=== PATIENT | female | born 1975 | race Caucasian/White ===

== ENCOUNTER 2016-04-05 15:55 | Emergency (ER) | payer MEDICAID ==
[~2016-04-05] VITALS: Ht 165.1 cm; Wt 70.3 kg
--- NOTE | 2016-04-05 15:55 | NUR ---
BROUGHT BACK TO BED #7 AND TRIAGED. REPORT GIVEN TO EVAN
[2016-04-05 15:58] VITALS: BP 145/94; PULSE 91; RESP 18; TEMP 99; O2SAT 98
--- NOTE | 2016-04-05 16:10 | NUR ---
Pt brought in by mother in stable condition. Pt c/o left arm numbness x3 months. Pt stated that she has been seeing her PMD and was rx Gabapentin. Pt stated that Gabapentin is ineffective. Pt c/o left shoulder tension and thinks it might be pinching a nerve. -sob -chest pain. No acute distress noted at this time, will continue to monitor
--- NOTE | 2016-04-05 16:15 | NUR ---
MARK Potts at bedside evaluating patient
[2016-04-05] MEDS ORDERED: KETOROLAC TROMETHAMINE 60 MG/2 ML VIAL IM ONE (16:30)
[2016-04-05 16:53] VITALS: BP 145/94; PULSE 91; RESP 18; TEMP 99; O2SAT 98
--- NOTE | 2016-04-05 16:53 | NUR ---
Patient given written and verbal discharge instructions and verbalizes understanding. ER [employer] DONA discussed with patient the results and treatment provided. Patient in stable condition. ID arm band removed. Rx of MOTRIN 600, FLEXERIL given. Patient educated on pain management and to follow up with PMD. Pain Scale 0/10. Opportunity for questions provided and answered.
== END 2016-04-05 16:53 | disposition home or self-care (01) ==
LOC: SED 15:55
DX: R20.8 Other disturbances of skin sensation (principal); I10 Essential (primary) hypertension
CPT/HCPCS: 81025; 96372; 99283; J1885

== ENCOUNTER 2019-07-09 12:00 | Emergency (ER) | payer MEDICAID ==
[~2019-07-09] VITALS: Ht 165.1 cm; Wt 69.4 kg
[2019-07-09 12:02] VITALS: BP_SYST 155
--- NOTE | 2019-07-09 12:06 | NUR ---
Patient to ER bed 02 to gown for evaluation. Side rails up.
--- NOTE | 2019-07-09 12:10 | NUR ---
pt arrives from home d/t an allergic rx. Pt reports she recently started taking Norvasc. Lip swelling noted. Will conitnue to monitor
--- NOTE | 2019-07-09 12:19 | NUR ---
ER at bedside examining patient.
--- NOTE | 2019-07-09 12:46 | NUR ---
Patient given written and verbal discharge instructions and verbalizes understanding. ER MD discussed with patient the results and treatment provided. Patient in stable condition. ID arm band removed. Rx of Zyrtec and HTCZ given. Patient educated on pain management and to follow up with PMD. Pain Scale 0/10. Opportunity for questions provided and answered. Medication side effect fact sheet provided.
[2019-07-09 13:23] VITALS: BP_SYST 155
== END 2019-07-09 13:23 | disposition home or self-care (01) ==
LOC: SED 12:00
DX: T78.3XXA Angioneurotic edema, initial encounter (principal)
CPT/HCPCS: 99283

== ENCOUNTER 2020-07-12 18:17 | Emergency (ER) | payer BC, MEDICAID ==
[~2020-07-12] VITALS: Ht 165.1 cm; Wt 68.0 kg
[2020-07-12 18:28] VITALS: BP_SYST 161
[2020-07-12] MEDS ORDERED: cefTRIAXone 1 GM in LIDOCAINE 1%, 20 ML MDV 2.1 ML IM ONE (18:45)
[2020-07-12] MEDS ORDERED: FLUC150T5 PO (19:02)
[2020-07-12] MEDS ORDERED: CEPH250C PO (19:05)
[2020-07-12] MEDS ORDERED: POLYTRIM EACH EYE (19:06)
[2020-07-12 19:13] VITALS: BP_SYST 135
== END 2020-07-12 19:13 | disposition home or self-care (01) ==
LOC: SED 18:17
DX: L73.9 Follicular disorder, unspecified (principal); H15.102 Unspecified episcleritis, left eye; I10 Essential (primary) hypertension
CPT/HCPCS: 96372; 99283; J0696; J2001

== ENCOUNTER 2022-03-03 11:34 | Emergency (ER) | payer BC ==
[~2022-03-03] VITALS: Ht 165.1 cm; Wt 68.0 kg
[~2022-03-03 11:34] MED LIST: CEPH250C PO; FLUC150T47 PO; POLYTRIM EACH EYE
[2022-03-03 11:40] VITALS: BP_SYST 137
--- NOTE | 2022-03-03 12:05 | NUR ---
Pt vaishali by self, A&Ox4, pt presents to ER with sore throat, bodyaches, cough, congestion starting one month ago, pt O2 97%,HR 124, afebrile, notified, will cont to monitor
[2022-03-03] MEDS ORDERED: D-ME120S20 PO (13:35)
[2022-03-03] MEDS ORDERED: BENZ100C92 PO (13:35)
[2022-03-03] MEDS ORDERED: PSEU30TA36 PO (13:35)
[2022-03-03] MEDS ORDERED: AZIT-93 PO (13:35)
[2022-03-03 13:46] VITALS: BP_SYST 137
--- NOTE | 2022-03-03 13:47 | NUR ---
Patient given written and verbal discharge instructions and verbalizes understanding. ER MD discussed with patient the results and treatment provided. Patient in stable condition. ID arm band removed. IV catheter removed intact and dressing applied, no active bleeding. Rx of AZITHROMYCIN, BENZONATATE, PROMETHAZINE-DM AND SUDAFED given. Patient educated on pain management and to follow up with PMD. Pain Scale 0/10. Opportunity for questions provided and answered. Medication side effect fact sheet provided.
== END 2022-03-03 13:47 | disposition home or self-care (01) ==
LOC: SED 11:34
DX: J18.9 Pneumonia, unspecified organism (principal); R50.9 Fever, unspecified; R05.9 Cough, unspecified; M54.6 Pain in thoracic spine; I10 Essential (primary) hypertension; Z79.899 Other long term (current) drug therapy; Z20.822 Contact with and (suspected) exposure to COVID-19
CPT/HCPCS: 36415; 71045; 99284